=== PATIENT | female | born 1950 | race Caucasian/White ===

== ENCOUNTER 2019-10-17 15:28 | Emergency (ER) | payer OTHER ==
[2019-10-17] MEDS ORDERED: HYDROCODONE/APAP 5/325 MG TAB ONE ×2 (16:13→17:10)
--- NOTE | 2019-10-17 16:42 | RAD REPORT ---
EXAM DESCRIPTION: RAD - Wrist Right 3 View - 10/17/2019 4:35 pm CLINICAL HISTORY: Right wrist pain status post injury FINDINGS: Comminuted impacted fracture involves the distal radius with mild to moderate displacement of fracture fragments. Nondisplaced fracture involves the distal ulna. No dislocation
--- NOTE | 2019-10-17 16:43 | RAD REPORT ---
EXAM DESCRIPTION: RAD - Forearm Right - 10/17/2019 4:35 pm CLINICAL HISTORY: Right arm pain status post fall FINDINGS: Comminuted impacted fracture involves the distal radius with mild to moderate displacement of fracture fragments. Nondisplaced fracture involves the distal ulna. No dislocation
[2019-10-17] MEDS ORDERED: LIDOCAINE 1% MPF 5 ML VIAL ONE (17:09)
[2019-10-17] MEDS ORDERED: BUPIVACAINE 0.5% PF 10 ML VIAL ONE (17:10)
--- NOTE | 2019-10-17 19:00 | EDPHYS ---
Physician Documentation [facility] Name: Sia Good Age: 69 yrs Sex: Female : 1950 Arrival Date: 10/17/2019 Time: 15:32 Bed 18 Private MD: ED Physician Olegario Beltran HPI: 10/16 15:51 This 69 yrs old Female presents to ER via Ambulatory with complaints of Fall cp Injury, Wrist Injury. 15:51 Details of fall: The patient fell from an upright position, while walking, and struck a cp concrete surface. Onset: The symptoms/episode began/occurred 2 hour(s) ago. Associated injuries: The patient sustained right wrist, decreased range of motion, painful injury. Historical: - Allergies: 15:40 PENICILLINS; jl7 - Home Meds: 15:40 Metformin Oral [Active]; tamsulosin oral oral [Active]; jl7 - PMHx: 15:40 Diabetes - NIDDM; jl7 - PSHx: 15:40 right hip; jl7 - Immunization history:: Adult Immunizations not up to date. - Social history:: Smoking status: Patient denies any tobacco usage or history of. ROS: 15:52 Constitutional: Negative for body aches, chills, fever. cp 15:52 Neck: Negative for pain with movement, pain at rest, stiffness. 15:52 Respiratory: Negative for cough, shortness of breath, wheezing. 15:52 Back: Negative for pain at rest, pain with movement. 15:52 MS/extremity: Positive for injury or acute deformity, decreased range of motion, pain, of the right wrist, Negative for paresthesias. 15:52 Neuro: Negative for altered mental status, headache, loss of consciousness, weakness. 15:52 All other systems are negative. Exam: 16:00 Constitutional: The patient appears in no acute distress, alert, awake, well developed, cp well nourished. 16:00 Head/Face: Normocephalic, atraumatic. cp 16:00 Neck: C-spine: vertebral tenderness, is not appreciated, crepitus, is not appreciated, ROM/movement: is normal, is supple, without pain, no range of motions limitations. 16:00 Chest/axilla: Inspection: normal, Palpation: is normal, no crepitus, no tenderness. 16:00 Cardiovascular: Rate: normal. 16:00 Respiratory: the patient does not display signs of respiratory distress, Respirations: normal, no use of accessory muscles, labored breathing, is not present. 16:00 Abdomen/GI: Exam negative for discomfort, distension, guarding, Inspection: abdomen appears normal. 16:00 Back: pain, is absent, ROM is normal. 16:00 Musculoskeletal/extremity: Extremities: grossly normal except: noted in the right wrist: decreased ROM, deformity, pain, swelling, tenderness, Perfusion: the extremity is normally perfused throughout, Severe pain noted. 16:00 Skin: intact right wrist. 16:00 Neuro: Orientation: to person, place \T\ time. Mentation: is normal. Vital Signs: 15:39 BP 172 / 73; Pulse 71; Resp 17; Temp 97.8; Pulse Ox 99% ; Weight 77.11 kg; Height 5 ft. jl7 2 in. (157.48 cm); Pain 6/10; 16:45 BP 220 / 69; Pulse 70; Resp 16 S; Pulse Ox 100% on R/A; ca1 17:09 BP 120 / 87; Pulse 69; Resp 15 S; Pulse Ox 100% on R/A; ca1 18:12 BP 207 / 71; Pulse 62; Resp 15; Pulse Ox 99% on R/A; ca1 19:02 BP 173 / 49; Pulse 64; Resp 18; Pulse Ox 97% on R/A; ca1 15:39 Body Mass Index 31.09 (77.11 kg, 157.48 cm) jl7 Procedures: 18:55 Reduction: of the right wrist, using traction, manipulation, Immobilized with cp Orthoglass sugar tong type. Patient tolerated well. Post reduction film - reveals improved alignment. MDM: 15:51 Patient medically screened. cp 18:59 Data reviewed: vital signs, nurses notes, radiologic studies, plain films, I have cp discussed the patient's presentation/case with the attending Emergency Department Physician; and as a result, I will discharge patient. 18:59 Differential diagnosis: closed head injury, contusion, fracture, multiple trauma. Test cp interpretation: by ED physician or midlevel provider: post reduction xrays of right wrist show improved alignment. Counseling: I had a detailed discussion with the patient and/or guardian regarding: the historical points, exam findings, and any diagnostic results supporting the discharge/admit diagnosis, the presence of at least one elevated blood pressure reading (>120/80) during this emergency department visit, the need for outpatient follow up, for definitive care, a family practitioner, a orthopedic surgeon, to return to the emergency department if symptoms worsen or persist or if there are any questions or concerns that arise at home. Response to treatment: the patient's symptoms have markedly improved after treatment, and as a result, I will discharge patient. 10/16 15:56 Order name: XRAY Wrist RIGHT 3 view; Complete Time: 17:17 cp 10/16 17:18 Interpretation: Report reviewed. cp 10/16 15:56 Order name: XRAY Forearm RIGHT; Complete Time: 17:17 cp 10/16 18:28 Order name: XRAY Wrist RIGHT 2 view cp 10/16 16:50 Order name: Misc. Order: finger trap to hang right upper extremity; Complete Time: 17:42cp 10/16 18:28 Order name: Sling; Complete Time: 18:29 cp Administered Medications: 16:10 Drug: HYDROcodone-acetaminophen 5 mg-325 mg 1 tabs {Note: rass - 0.} Route: PO; ca1 16:59 Follow up: Response: No adverse reaction; Pain is unchanged, physician notified ca1 16:59 Drug: HYDROcodone-acetaminophen 5 mg-325 mg 1 tabs {Note: rass - 0.} Route: PO; ca1 19:19 Follow up: Response: No adverse reaction mg2 17:40 Drug: Marcaine (0.5 %) 10 ml {Note: by Dave Leal, PA.} Volume: 10 ml; Route: ca1 Infiltration; 17:41 Drug: Lidocaine (1 %) 10 ml {Note: By Dave Leal, PA.} Volume: 20 ml; Route: ca1 Infiltration; Disposition: 19:15 Chart complete. cp Disposition: 10/17/19 18:59 Discharged to Home. Impression: Colles' fracture of right radius, Hypertensive heart disease. - Condition is Stable. - Discharge Instructions: Colles Fracture, How to Take Your Blood Pressure, [id number], Form - Blood Pressure Record Sheet. - Prescriptions for Tylenol- Codeine #3 300-30 mg Oral Tablet - take 2 tablets by ORAL route every 6 hours As needed; 20 tablet. - Medication Reconciliation Form, Thank You Letter, Antibiotic Education, Prescription Opioid Use form. - Follow up: Private Physician; When: orthopedist next 2-3 days; Reason: right wrist fracture. - Problem is new. - Symptoms have improved. Addendum: 10/23/2019 21:05 Co-signature as Attending Physician, Olegario Beltran MD. r n Signatures: Dispatcher [employer] EDMS Olegario Beltran MD MD rn Dave Leal, PA PA cp Paul Reyes RN RN jl7 Ehsan Hayes RN RN mg2 Regine Hill RN RN ca1 Corrections: (The following items were deleted from the chart) 10/16 19:02 18:59 10/17/2019 18:59 Discharged to Home. Impression: Colles' fracture of right cp radius. Condition is Stable. Forms are Medication Reconciliation Form, Thank You Letter, Antibiotic Education, Prescription Opioid Use. Follow up: Private Physician; When: orthopedist next 2-3 days; Reason: right wrist fracture. Problem is new. Symptoms have improved. cp 19:19 19:02 10/17/2019 18:59 Discharged to Home. Impression: Colles' fracture of right mg2 radius; Hypertensive heart disease. Condition is Stable. Discharge Instructions: Colles Fracture, How to Take Your Blood Pressure, [id number], Form - Blood Pressure Record Sheet. Prescriptions for Tylenol-Codeine #3 300-30 mg Oral Tablet - take 2 tablets by ORAL route every 6 hours As needed; 20 tablet. and Forms are Medication Reconciliation Form, Thank You Letter, Antibiotic Education, Prescription Opioid Use. Follow up: Private Physician; When: orthopedist next 2-3 days; Reason: right wrist fracture. Problem is new. Symptoms have improved. cp
--- NOTE | 2019-10-17 19:00 | ER ---
Nurse's Notes [facility] Name: Sia Good Age: 69 yrs Sex: Female : 1950 Arrival Date: 10/17/2019 Time: 15:32 Bed 18 Private MD: Diagnosis: Colles' fracture of right radius;Hypertensive heart disease Presentation: 10/16 15:37 Chief complaint: Patient states: Walking and tripped over a raised spot on the [facility] sidewalk, fell onto right wrist. ENS came out and splinted the arm and wrist. Care prior to arrival: None. Mechanism of Injury: Fall from standing position. Trauma event details: Injury occurred in the [facility], Injury occurred: at home. Injury occurred: October 17, 2019 Injury occurred at: 14:30. 15:37 Acuity: JAMIE 4 [facility] 15:37 Method Of Arrival: Ambulatory [facility] 15:39 Coronavirus screen: Proceed with normal triage. Patient denies a cough. Patient denies jl7 shortness of breath or difficulty breathing. Patient denies measured and/or subjective temperature greater than 100.4F prior to today's visit. Patient denies travel on a cruise ship or to a country the [facility] currently lists as an affected area. Patient denies contact with known and/or suspected case of COVID-19. Ebola Screen: No symptoms or risks identified at this time. Initial Sepsis Screen: Does the patient meet any 2 criteria? No. Patient's initial sepsis screen is negative. Does the patient have a suspected source of infection? No. Patient's initial sepsis screen is negative. Risk Assessment: Do you want to hurt yourself or someone else? Patient reports no desire to harm self or others. Onset of symptoms was October 17, 2019 at 14:30. Triage Assessment: 15:40 General: Appears in no apparent distress. uncomfortable, Behavior is cooperative, jl7 appropriate for age, anxious. Pain: Complains of pain in right wrist Pain currently is 6 out of 10 on a pain scale. Historical: - Allergies: 15:40 PENICILLINS; jl7 - Home Meds: 15:40 Metformin Oral [Active]; tamsulosin oral oral [Active]; jl7 - PMHx: 15:40 Diabetes - NIDDM; jl7 - PSHx: 15:40 right hip; jl7 - Immunization history:: Adult Immunizations not up to date. - Social history:: Smoking status: Patient denies any tobacco usage or history of. Screenin:45 Abuse screen: Denies threats or abuse. Denies injuries from another. Nutritional ca1 screening: No deficits noted. Tuberculosis screening: No symptoms or risk factors identified. Fall Risk Fall in past 12 months (25 points). Assessment: 15:45 General: Appears in no apparent distress. comfortable, Behavior is calm, cooperative, ca1 appropriate for age. Pain: Complains of pain in right wrist Pain currently is 8 out of 10 on a pain scale. Neuro: Level of Consciousness is awake, alert, obeys commands, Oriented to person, place, time, situation, Appropriate for age. Derm: Skin is intact, is healthy with good turgor, Skin is pink, warm \T\ dry. Musculoskeletal: Circulation, motion, and sensation intact. Capillary refill < 3 seconds, Range of motion: limited in right wrist Swelling present in right wrist. 16:45 Reassessment: Patient appears in no apparent distress at this time. No changes from ca1 previously documented assessment. Patient and/or family updated on plan of care and expected duration. Pain level reassessed. Patient is alert, oriented x 3, equal unlabored respirations, skin warm/dry/pink. 17:40 Reassessment: Patient appears in no apparent distress at this time. No changes from ca1 previously documented assessment. Patient and/or family updated on plan of care and expected duration. Pain level reassessed. Patient is alert, oriented x 3, equal unlabored respirations, skin warm/dry/pink. 18:27 Reassessment: Patient appears in no apparent distress at this time. Patient and/or ca1 family updated on plan of care and expected duration. Pain level reassessed. Patient is alert, oriented x 3, equal unlabored respirations, skin warm/dry/pink. Vital Signs: 15:39 BP 172 / 73; Pulse 71; Resp 17; Temp 97.8; Pulse Ox 99% ; Weight 77.11 kg; Height 5 ft. jl7 2 in. (157.48 cm); Pain 6/10; 16:45 BP 220 / 69; Pulse 70; Resp 16 S; Pulse Ox 100% on R/A; ca1 17:09 BP 120 / 87; Pulse 69; Resp 15 S; Pulse Ox 100% on R/A; ca1 18:12 BP 207 / 71; Pulse 62; Resp 15; Pulse Ox 99% on R/A; ca1 19:02 BP 173 / 49; Pulse 64; Resp 18; Pulse Ox 97% on R/A; ca1 15:39 Body Mass Index 31.09 (77.11 kg, 157.48 cm) jl7 ED Course: 15:32 Patient arrived in ED. ag5 15:38 Triage completed. jl7 15:40 Arm band placed on right wrist. jl7 15:45 Patient has correct armband on for positive identification. Side rails up X 1. Pulse ox ca1 on. NIBP on. 15:47 Dave Leal PA is PHCP. cp 15:47 Olegario Beltran MD is Attending Physician. cp 15:53 Regine Hill, WANDER is Primary Nurse. ca1 16:36 XRAY Wrist RIGHT 3 view In Process Unspecified. EDMS 16:36 XRAY Forearm RIGHT In Process Unspecified. EDMS 18:05 Assist provider with nerve block (regional) of dorsal aspect of right wrist and palmar ca1 aspect of right wrist Set up for procedure. Performed by Dave MARLEY Patient tolerated well. Patient did not have IV access during this emergency room visit. 18:36 Orthoglass splint: Sugar tong splint applied on right arm. dh4 18:48 XRAY Wrist RIGHT 2 view In Process Unspecified. EDMS 19:00 Sling applied to right arm. mg2 Administered Medications: 16:10 Drug: HYDROcodone-acetaminophen 5 mg-325 mg 1 tabs {Note: rass - 0.} Route: PO; ca1 16:59 Follow up: Response: No adverse reaction; Pain is unchanged, physician notified ca1 16:59 Drug: HYDROcodone-acetaminophen 5 mg-325 mg 1 tabs {Note: rass - 0.} Route: PO; ca1 19:19 Follow up: Response: No adverse reaction mg2 17:40 Drug: Marcaine (0.5 %) 10 ml {Note: by PA. Karyn} Volume: 10 ml; Route: ca1 Infiltration; 17:41 Drug: Lidocaine (1 %) 10 ml {Note: By PA. Karyn} Volume: 20 ml; Route: ca1 Infiltration; Outcome: 18:59 Discharge ordered by . cp 19:18 Discharged to home via wheelchair, with family. mg2 19:18 Condition: good 19:18 Discharge instructions given to patient, family, Instructed on discharge instructions, follow up and referral plans. medication usage, Demonstrated understanding of instructions, follow-up care, medications, splint care, Prescriptions given X 1. 19:19 Patient left the ED. mg2 Signatures: Dispatcher [employer] EDMS Dave Leal PA PA cp Leal, Jahala, RN RN jl7 Ehsan Hayes RN RN mg2 Regine Hill RN RN ca1 Prashant Oates Matheus Bacon [facility] Corrections: (The following items were deleted from the chart) 18:27 18:05 Assist provider with nerve block (regional) of Set up for procedure. Performed by ca1 Dave MARLEY Patient tolerated well. ca1
--- NOTE | 2019-10-17 19:28 | RAD REPORT ---
EXAM DESCRIPTION: RAD - Wrist Right 2 View - 10/17/2019 6:47 pm CLINICAL HISTORY: Radial fracture FINDINGS: A splint immobilizes the fractures of the distal radius and ulna
[2019-10-17 19:32] VITALS: TEMP 97.8
[2019-10-17 19:38] VITALS: BP 173/49; O2SAT 97
== END 2019-10-17 19:19 | disposition home or self-care (01) ==
LOC: ER 15:28
PROC: 0PSHXZZ Reposition Right Radius, External Approach (ICD-10-PCS; principal; 2019-10-17)
DX: S52.531A Colles' fracture of right radius, initial encounter for closed fracture (principal); I11.9 Hypertensive heart disease without heart failure; W19.XXXA Unspecified fall, initial encounter; Y93.01 Activity, walking, marching and hiking; Y92.9 Unspecified place or not applicable; E11.9 Type 2 diabetes mellitus without complications; Z88.0 Allergy status to penicillin
CPT/HCPCS: 99284